=== PATIENT | female | born 1990 | race Caucasian/White ===

== ENCOUNTER 2020-07-28 19:42 | Emergency (ER) | payer BC, OTHER ==
[~2020-07-28] VITALS: Ht 165.1 cm; Wt 54.4 kg
--- NOTE | 2020-07-28 19:46 | NUR ---
PT AAOX4. AMBULATORY WITH STEADY GAIT. BIBSELF C/O BODYACHES AND BODY WEAKNESS X5 DAYS. PLACED IN BED 7 ON MONITOR AND PULSE OX. ER PA AT BEDSIDE FOR EVAL. AWAITING OREDRS.
[2020-07-28] MEDS ORDERED: ACETAMINOPHEN 325 MG TABLET ONE (20:07)
[2020-07-28] MEDS ORDERED: KETOROLAC TROMETHAMINE 15 MG/ML VIAL ONE (20:14)
[2020-07-28 20:28] LABS: BASOPHILS % (AUTO) 0.2 % (0.0-2.0); EOSINOPHILS % (AUTO) 0.1 % (0.0-6.0); HEMATOCRIT 40 % (33-45); HEMOGLOBIN 13.6 g/dL (11.5-14.8); LYMPHOCYTES % (AUTO) 12.1 % (20.0-44.0); MEAN CORPUSCULAR HGB CONC 34 g/dl (31.0-36.0); MEAN CORPUSCULAR VOLUME 92 fL (82-100); MONOCYTES # (AUTO) 0.4 /CMM (0.1-1.30); MONOCYTES % (AUTO) 4.6 % (2.0-12.0); NEUTROPHILS # (AUTO) 6.7 /CMM (1.8-8.9); PLATELET COUNT (AUTO) 271 /CMM (150-450); RED BLOOD CELL COUNT(AUTO) 4.31 MIL/uL (4.0-5.2)
[2020-07-28] MEDS ORDERED: ACETAMINOPHEN 325 MG TABLET PO ONE (20:30)
[2020-07-28] MEDS ORDERED: KETOROLAC TROMETHAMINE INJ 30 MG/ML VIAL IV ONE (20:30)
[2020-07-28] MEDS ORDERED: IV NS 0.9% 1,000 ML BAG IV ONE (20:30)
[2020-07-28 20:35] LABS: CALCIUM, SERUM 9.6 mg/dL (8.5-10.1); CREATININE 0.9 mg/dL (0.6-1.3); POTASSIUM 3.6 mmol/L (3.5-5.1)
--- NOTE | 2020-07-28 20:36 | NUR ---
MINALID SWABBED, SENT TO LAB.
--- NOTE | 2020-07-28 20:37 | NUR ---
INF SWABBED, SEN TO LAB.
[2020-07-28] MEDS ORDERED: BENZ-13 PO (20:49)
[2020-07-28] MEDS ORDERED: ACET-73 PO (20:49)
--- NOTE | 2020-07-28 21:18 | NUR ---
Patient discharged to home in stable condition. Written and verbal after care instructions given. Patient verbalizes understanding of instruction and RX.
--- NOTE | 2020-07-28 21:18 | NUR ---
IV removed. Catheter intact and site benign. Pressure and 4x4 applied to site. No bleeding noted.
[2020-07-28 21:20] VITALS: BP 126/79
== END 2020-07-28 21:20 | disposition home or self-care (01) ==
LOC: ER 19:52
DX: R06.02 Shortness of breath (principal); R53.1 Weakness; R05 Cough; Z20.822 Contact with and (suspected) exposure to COVID-19; R07.81 Pleurodynia; R52 Pain, unspecified
CPT/HCPCS: 36415; 71045; 80048; 85025; 87804; 96361; 96374; 99284; C9803; J1885; J7030; U0003